=== PATIENT | female | born 1945 | race Caucasian/White ===

== ENCOUNTER 2017-10-03 07:52 | Emergency (ER) | payer MEDICARE ==
[~2017-10-03] VITALS: Ht 160 cm; Wt 81.7 kg
[~2017-10-03 07:52] MED LIST: ASA81BEC PO; ATORVASTATIN CA40 MG PO; BACLOFEN RECTAL; CARISOPRODOL 3350 MG PO; CARVEDILOL12.5 MG PO; CELEBREX 200 M200 M1 PO; COZAAR 25 MG TA25 M2; DEXILANT60 MG PO; DOXYCYCLINE 10100 MG PO; ESTRACE1 TUBE VAG; HYDROCODONE-AP1 EAC6; LISINOPRIL10 MG PO; NEURONTIN 300300 M1
[2017-10-03] MEDS ORDERED: PREVACID30 MG PO (08:09)
[2017-10-03] MEDS ORDERED: MUSCLE RELAXER (08:10)
[2017-10-03 08:11] LABS: URINE BILIRUBIN NEGATIVE (Negative); URINE BLOOD 1+ (Negative); URINE CLARITY SL CLOUDY; URINE GLUCOSE-RANDOM NEGATIVE (Negative); URINE KETONES NEGATIVE (Negative); URINE NITRITE-REFLEX NEGATIVE (Negative); URINE PROTEIN NEGATIVE (Negative); URINE SPECIFIC GRAVITY <= 1.005 (1.005-1.030); URINE UROBILINOGEN 0.2 E.U./dl (0.2-1.0)
[2017-10-03 08:17] LABS: URINE LEUKOCYTES-REFLEX 3+ (Negative)
[2017-10-03 08:18] LABS: URINE COLOR OTHER
[2017-10-03 08:26] LABS: HYALINE CASTS 0-3 Few /LPF (None Seen); MUCUS 0-3 Light strn/LPF (None Seen); SQUAMOUS >10 Many /LPF (0-3)
[2017-10-03 08:27] LABS: URINE RBC 3-10 Few /HPF (0-2); URINE WBC-REFLEX >25 Many /HPF (0-5)
[2017-10-03 08:28] LABS: CRYSTALS None Seen /LPF (None Seen)
[2017-10-03] MEDS ORDERED: PHENAZOPYRIDIN200 M2 PO (08:30)
[2017-10-03] MEDS ORDERED: KEFLEX500 M1 PO (08:30)
[2017-10-03 08:40] VITALS: BP 120/73
== END 2017-10-03 08:41 | disposition home or self-care (01) ==
LOC: M.ERS 07:52
PROVIDERS: Emergency Medicine Emergency Medical Services
DX: N39.0 Urinary tract infection, site not specified (principal); I21.9 Acute myocardial infarction, unspecified; Z90.710 Acquired absence of both cervix and uterus; Z90.49 Acquired absence of other specified parts of digestive tract; Z95.5 Presence of coronary angioplasty implant and graft; Z88.1 Allergy status to other antibiotic agents

== ENCOUNTER 2017-12-20 11:37 | Observation (INO) | payer MEDICARE ==
[~2017-12-20] VITALS: Ht 160 cm; Wt 80.7 kg
[~2017-12-20 11:37] MED LIST changes: +KEFLEX500 M1 PO; +MUSCLE RELAXER; +PHENAZOPYRIDIN200 M2 PO; +PREVACID30 MG PO
[2017-12-20 11:41] VITALS: BP 195/99
[2017-12-20] MEDS ORDERED: FLEXERIL PO (11:48)
[2017-12-20 12:19] LABS: ABSOLUTE BASOPHILS 0.1 thou/uL (0.0-0.2); ABSOLUTE EOSINOPHILS 0.2 thou/uL (0.0-0.7); ABSOLUTE LYMPHOCYTES 1.4 thou/uL (0.8-5.3); ABSOLUTE MONOCYTES 0.8 thou/uL (0.0-1.2); ABSOLUTE NEUTROPHILS 5.2 thou/uL (1.6-8.1); BASOPHILS 0.7 %; EOSINOPHILS 3.2 %; HEMATOCRIT 43.3 % (37.0-47.0); HEMOGLOBIN 14.6 gm/dL (12.0-15.0); MCH 31.7 pg (26.0-34.0); MCHC 33.8 g/dL (28.0-37.0); MCV 93.7 fL (80.0-100.0); MONOCYTES 9.8 %; MPV 7.2 fl. (7.2-11.1); NUCLEATED RBCS 0 /100WBC; PLATELET COUNT* 273 thou/uL (150-400); POLYS 68.3 %; RBC 4.62 mil/uL (4.20-5.00); RDW-CV 14.2 % (10.5-14.5); WBC 7.7 thou/uL (4.0-11.0)
[2017-12-20 12:28] LABS: ANION GAP 9 mmol/L (7-16); BUN 22 mg/dL (7-18); CALCIUM 8.6 mg/dL (8.5-10.1); CHLORIDE 105 mmol/L (98-107); CO2 23 mmol/L (21-32); GLUCOSE 133 mg/dL (70-99); POTASSIUM 3.7 mmol/L (3.5-5.1); SODIUM 137 mmol/L (136-145)
[2017-12-20 12:31] LABS: APTT 28.7 Seconds (25.0-31.3); PROTIME 10.2 Seconds (9.20-11.50)
[2017-12-20 12:39] LABS: ALBUMIN 3.5 g/dL (3.4-5.0); ALKALINE PHOSPHATASE 109 U/L (46-116); LIPASE 122 U/L (73-393); NT-PRO BRAIN NAT PEPTIDE 35 pg/mL (<300); SGOT 21 U/L (15-37); SGPT 40 U/L (30-65); TOTAL BILIRUBIN 1.1 mg/dL (<0.1-1.0); TOTAL PROTEIN 7.1 g/dL (6.4-8.2); TROPONIN-I LEVEL <0.06 ng/mL (<0.06)
[2017-12-20 14:41] VITALS: BP 122/80
[2017-12-20 14:46] VITALS: BP 133/79
[2017-12-20] MEDS ORDERED: TOPAMAX 25 MG T25 M1 PO (15:37)
[2017-12-20 19:06] LABS: CHOLESTEROL 143 mg/dL (<200); HDL CHOLESTEROL 67 mg/dL (>40); LDL CHOLESTEROL 54 mg/dL (<100); TC:HDL 2.1 Ratio (Not establshd); TRIGLYCERIDE 110 mg/dL (<150); VLDL 22 mg/dL (<40)
[2017-12-20 19:07] LABS: SERUM ASSESSMENT CLEAR
[2017-12-20 20:00] VITALS: BP 147/91
[2017-12-21] VITALS (8 sets, daily range): BP systolic 136–191; BP diastolic 71–94
--- NOTE | 2017-12-21 12:54 | EKG ---
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 : 1945 Requested By: Esthela Arnett Order Number: [id number] MD: Jacinto Correa Measurements Intervals [place] Rate: 98 P: 13 [place]: 191 QRS: -5 QRSD: 89 T: 30 QT: 329 QTc: 421 Interpretive Statements Sinus rhythm Baseline wander in lead(s) V5,V6 Compared to ECG 11/29/2013 16:05:15 No significant changes Electronically Signed On 12-21-2017 12:54:05 CDT by Jacinto Correa [email or web address] <ELECTRONICALLY SIGNED> By: Jacinto Correa MD, [facility] 12/21/17 1254 1144 1144 Jacinto Correa MD, [facility] /EPI
--- NOTE | 2017-12-21 15:32 | CARDNUC ---
[place] [address] CARDIAC NUCLEAR IMAGING REPORT Name: AMINA OJEDA Room: [address] IN [facility]#: [id number] Admission: 12/20/17 Attend Phys: Steven Lopez Discharge: Date of : 45 Date of Service: 12/21/17 1532 Report #: [id number] THIS REPORT FOR: //name// APPROVED REPORT Imaging Protocol: Rest Tc-99m/Stress Tc-99m 1 day Study performed: 12/20/2017 18:37:00 Indication: chest pain Patient Location: In-Patient Room #: 202 Stress Tech: Janae Paredes Stress Nurse: Ngoc Jules RN NM Tech:ASHA Humphrey Ht: 5 ft 2 in Wt: 178 lbs BSA: 1.82 m2 BMI: 32.55 Medical History Medical History: mi, cad, pci, hyperlipidemia, hypertension Allergies: sulfa Cardiac Risk Factors: age, hyperlipidemia, hypertension, family hx Previous Cardiac Procedures: pci Meds Held (24 hrs): carvedilol Resting Data Rest SPECT myocardial perfusion imaging was performed in supine position 30 minutes following the intravenous injection of 11.5 mCi of Tc-99m Sestamibi. Time of rest injection: 1115 Date: 12/21/2017 Time of rest imagin The images were gated to evaluate regional wall motion and calculate left ventricular ejection fraction. Administration Route: IV Administration Site: Right AC Pharmacologic Stress Pharmacologic stress test was performed by injecting Regadenoson 0.4 mg IV push over 10-15 seconds immediately followed by the intravenous injection of 35.3 mCi of Tc-99m Sestamibi. Time of stress injection: 1330 Time of stress imagin Administration Route: [place] [address] CARDIAC NUCLEAR IMAGING REPORT Name: AMINA OJEDA Room: [address] IN ..#: [id number] Admission: 12/20/17 Attend Phys: Steven Lopez Discharge: Date of : 45 Date of Service: 12/21/17 1532 Report #: [id number] Administration Site: Right AC Gated Stress SPECT was performed 40 minutes after stress injection. The images were gated to evaluate regional wall motion and calculate left ventricular ejection fraction. Prone imaging was performed. Stress Test Details Stress Test: Pharmacologic stress testing performed using 0.4 mg of regadenoson per 5 mL given IV over 10 seconds. HR Max Heart Rate (APMHR): 148 bpm Resting HR: 89 bpm Target HR (85% APMHR): 125 bpm Max HR Achieved: 121 bpm % of APMHR: 81 Recovery HR: 99 bpm BP Resting BP: 169/107 mmHg Recovery BP: 160/112 mmHg ECG Resting ECG: Sinus Rhythm, normal EKG Stress ECG: Sinus Rhythm, normal EKG ST Change: None Arrhythmia: None Recovery ECG: Sinus Rhythm, normal EKG Recovery ST Change: None Recovery Arrhythmia: None Clinical Reason for Termination: Completed protocol Exercise duration: 0 min sec Exercise capacity: 1 METs The patient had some symptoms of shortness of breath and chest discomfort that appear to be related to medication effect in light of nuclear medicine stress test findings. Nurse Comments pt co soa and mild chest tightness Stress ECG Conclusion The baseline 12-lead EKG shows sinus rhythm without significant ST or T wave abnormality. EKGs obtained during and post Lexiscan infusion show sinus rhythm with no significant ST or T wave changes when compared to baseline. There [place] [address] CARDIAC NUCLEAR IMAGING REPORT Name: OJEDAAMINA Room: [address]#: [id number] Admission: 12/20/17 Attend Phys: Steven Lopez Discharge: Date of : 45 Date of Service: 12/21/17 1532 Report #: [id number] arrhythmias. Study Quality Study: Good Artifact: No artifact Study Data At rest, the left ventricular ejection fraction was 64%.. Post stress, the left ventricular ejection was 73%.. TID = 0.88. Perfusion Normal left ventricular perfusion. Wall Motion Normal left ventricular wall motion. Nuclear Conclusion ECG Findings: negative for ischemia Clinical Findings: non-diagnostic Nuclear Findings: negative for ischemia Exercise Capacity: not assessed Left Ventricular Function: normal Risk Study: low Myocardial perfusion images show no defect to suggest infarct or ischemia. Left ventricular systolic function appears normal on gated studies. This is a low risk study. <Conclusion> The baseline 12-lead EKG shows sinus rhythm without significant ST or T wave abnormality. EKGs obtained during and post Lexiscan infusion show sinus rhythm with no significant ST or T wave changes when compared to baseline. There were no stress-induced arrhythmias. <ELECTRONICALLY SIGNED> By: Lico Barney MD, FACC 12/21/17 1532 153 1532 Lico Barney MD, FACC /INF
[2017-12-21] MEDS ORDERED: NITROGLYCERIN0.4 MG SUBLING (15:56)
[2017-12-21] MEDS ORDERED: NORCO 5-325 TA1 EACH PO (15:56)
[2017-12-21] MEDS ORDERED: ONDANSETRON HCL4 M2 PO (15:57)
[2017-12-22 02:06] LABS: GLYCOHEMOGLOBIN (HGB A1C) 5.7 % (4.8-5.6)
== END 2017-12-21 16:25 | disposition home or self-care (01) ==
LOC: M.ERS 11:37 → M.TBA-ER 13:11 → M.2W 13:11
PROVIDERS: Internal Medicine; Personal Emergency Response Attendant; ADMIT Internal Medicine
DX: I20.9 Angina pectoris, unspecified (principal); M47.892 Other spondylosis, cervical region; E78.5 Hyperlipidemia, unspecified; I12.9 Hypertensive chronic kidney disease with stage 1 through stage 4 chronic kidney disease, or unspecified chronic kidney disease; N18.3 Chronic kidney disease, stage 3 (moderate); G43.909 Migraine, unspecified, not intractable, without status migrainosus; E80.6 Other disorders of bilirubin metabolism; R19.7 Diarrhea, unspecified; R51 Headache; I25.2 Old myocardial infarction; Z98.890 Other specified postprocedural states; Z90.710 Acquired absence of both cervix and uterus; Z90.49 Acquired absence of other specified parts of digestive tract

== ENCOUNTER → 2018-01-05 | Outpatient (CLI) | payer MEDICARE ==
[~2018-01-05] MED LIST changes: +FLEXERIL PO; +NITROGLYCERIN0.4 MG SUBLING; +NORCO 5-325 TA1 EACH PO; +ONDANSETRON HCL4 M2 PO; +TOPAMAX 25 MG T25 M1 PO
--- NOTE | 2018-01-05 14:50 | 2DMMODE ---
[place] [address] 2 D/M-MODE ECHOCARDIOGRAM Name: OJEDAAMINA Room: [facility]#: [id number] Admission: 01/05/18 Attend Phys: Violet Ignacio, Discharge: Date of : 45 Date of Service: 01/05/18 1450 Report #: [id number] THIS REPORT FOR: //name// APPROVED REPORT Study performed: 01/05/2018 12:59:11 EXAM: Comprehensive 2D, Doppler, and color-flow Echocardiogram Patient Location: Out-Patient Status: routine BSA: 1.85 HR: 71 bpm BP: 138/82 mmHg Other Information Study Quality: Fair Indications Dyspnea CAD 2D Dimensions IVSd: 11.56 (7-11mm) LVOT Diam: 20.93 (18-24mm) LVDd: 43.52 mm PWd: 12.05 (7-11mm) Ascending Ao: 31.84 (22-36mm) LVDs: 23.19 (25-40mm) Aortic Root: 31.17 mm Volumes Left Atrial Volume (Systole) LA ESV Index: 17.60 mL/m2 Aortic Valve AoV Peak Ubaldo.: 1.04 m/s AO Peak Gr.: 4.35 mmHg LVOT Max P.33 mmHg AO Mean Gr.: 2.55 mmHg LVOT Mean P.31 mmHg LVOT Max V: 0.76 m/s AO V2 VTI: 21.74 cm LVOT Mean V: 0.54 m/s PAULETTE (VTI): 2.30 cm2 LVOT V1 VTI: 14.51 cm AI Dare: 2.91 m/s2 AI PHT: 370.47 ms Mitral Valve E/A Ratio: 0.49 [place] [address] 2 D/M-MODE ECHOCARDIOGRAM Name: AMINA OJEDA Room: [facility]#: [id number] Admission: 01/05/18 Attend Phys: Violet Ignacio, Discharge: Date of : 45 Date of Service: 01/05/18 1450 Report #: [id number] MV Decel. Time: 221.70 ms MV E Max Ubaldo.: 0.36 m/s MV PHT: 64.29 ms MVA (PHT): 3.42 cm2 TDI E/Lateral E': 7.20 E/Medial E': 6.00 Medial E' Ubaldo.: 0.06 m/s Lateral E' Ubaldo.: 0.05 m/s Pulmonary Valve PV Peak Ubaldo.: 0.83 m/s PV Peak Gr.: 2.72 mmHg Left Ventricle The left ventricle is normal size. There is normal LV segmental wall motion. There is normal left ventricular wall thickness. Left ventricular systolic function is normal. The left ventricular ejection fraction is within the normal range. LVEF is 55-60%. Grade I - abnormal relaxation pattern. Right Ventricle The right ventricle is normal size. The right ventricular systolic function is normal. Atria The left atrium size is normal. The right atrium size is normal. Aortic Valve The aortic valve is normal in structure. Trace aortic regurgitation. There is no aortic valvular stenosis. Mitral Valve The mitral valve is normal in structure. There is no mitral valve regurgitation noted. No evidence of mitral valve stenosis. Tricuspid Valve The tricuspid valve is normal in structure. There is no tricuspid valve regurgitation noted. Pulmonic Valve The pulmonary valve is normal in structure. There is no pulmonic valvular regurgitation. Great Vessels The aortic root is normal in size. IVC [place] [address] 2 D/M-MODE ECHOCARDIOGRAM Name: AMINA OJEDA Room: [facility]#: [id number] Admission: 01/05/18 Attend Phys: Violet Ignacio, Discharge: Date of : 45 Date of Service: 01/05/18 1450 Report #: [id number] collapses >50% with inspiration. Pericardium There is no pericardial effusion. <Conclusion> The left ventricle is normal size. There is normal left ventricular wall thickness. Left ventricular systolic function is normal. The left ventricular ejection fraction is within the normal range. LVEF is 55-60%. Grade I - abnormal relaxation pattern. The right ventricle is normal size. The left atrium size is normal. The aortic valve is normal in structure. Trace aortic regurgitation. There is no aortic valvular stenosis. The mitral valve is normal in structure. The tricuspid valve is normal in structure. IVC is normal in size and collapses >50% with inspiration. There is no pericardial effusion. There is normal LV segmental wall motion. <ELECTRONICALLY SIGNED> By: Jacinto Correa MD, FACC 01/05/18 1450 1450 1450 Jacinto Correa MD, FACC /INF
== END ==
LOC: M.CRD 12:47
DX: I25.10 Atherosclerotic heart disease of native coronary artery without angina pectoris (principal); I38 Endocarditis, valve unspecified; R53.83 Other fatigue; I10 Essential (primary) hypertension; Z88.8 Allergy status to other drugs, medicaments and biological substances

== ENCOUNTER → 2019-05-22 | Outpatient (CLI) | payer MEDICARE ==
[~2019-05-22] VITALS: Ht 160 cm; Wt 83.0 kg
--- NOTE | ~2019-05-22 | EKG ---
[place] [address] ELECTROCARDIOGRAM REPORT Name: AMINA OJEDA Room: [facility]#: [id number] Admission: 05/22/19 Attend Phys: Valeriano Yarbrough MD Discharge: Date of : 45 Date of Service: 05/22/19837 Report #: [id number] THIS REPORT FOR: cc: Jacques Marmolejo Chad W. DO Epiphany, Epiphany MD ~ THIS REPORT FOR: //name// 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
[2019-05-22 08:24] LABS: HEMATOCRIT 38.7 % (37.0-47.0); HEMOGLOBIN 13.4 gm/dL (12.0-15.0); MCH 31.5 pg (26.0-34.0); MCHC 34.5 g/dL (28.0-37.0); MCV 91.3 fL (80.0-100.0); MPV 7.3 fl. (7.2-11.1); RBC 4.23 mil/uL (4.20-5.00); RDW-CV 13.1 % (10.5-14.5); WBC 7.7 thou/uL (4.0-11.0)
[2019-05-22 08:42] LABS: APTT 28.5 Seconds (25.0-31.3); INR 1.1
[2019-05-22 08:49] LABS: ANION GAP 13 mmol/L (7-16); BUN 22 mg/dL (7-18); CALCIUM 8.6 mg/dL (8.5-10.1); CHLORIDE 108 mmol/L (98-107); CO2 20 mmol/L (21-32); CREATININE 0.9 mg/dL (0.6-1.3); GLUCOSE 115 mg/dL (70-99); SODIUM 141 mmol/L (136-145)
[2019-05-22 08:54] LABS: ALBUMIN 3.7 g/dL (3.4-5.0); ALKALINE PHOSPHATASE 110 U/L (46-116); SGOT 25 U/L (15-37); SGPT 33 U/L (30-65); TOTAL BILIRUBIN 0.9 mg/dL (<0.1-1.0); TOTAL PROTEIN 6.7 g/dL (6.4-8.2)
[2019-05-22 09:07] LABS: CHOLESTEROL 126 mg/dL (<200); HDL CHOLESTEROL 56 mg/dL (>40); LDL CHOLESTEROL 53 mg/dL (<100); TC:HDL 2.3 Ratio (Not establshd); TRIGLYCERIDE 86 mg/dL (<150); VLDL 17 mg/dL (<40)
[2019-05-22 09:14] LABS: SERUM ASSESSMENT Clear
[2019-05-22 09:30] VITALS: BP 109/67
[2019-05-22 12:08] VITALS: BP 136/72
[2019-05-22 12:52] VITALS: BP 146/79
[2019-05-22 13:38] VITALS: BP 154/73
--- NOTE | 2019-05-22 18:43 | CARD ---
[address] [address] CARDIAC CATH REPORT Name: [facility]INA [facility]JEDA [id number] Admission: 05/22/19 Attend Phys: Valeriano Yarbrough MD, F Discharge: Date of : 45 Report #: [id number] THIS REPORT FOR: //name// cc: Jacques Marmolejo Chad W. DO ~ THIS REPORT FOR: //name// APPROVED REPORT Study performed: 05/22/2019 10:48:14 Patient Details Patient Status: Out-Patient Room #: The patient is a 73 year-old female Event Personnel Valeriano Yarbrough Web Operations Specialist, Guadalupe Cormier RN RN, Griffin Mercado TEACHER ASSISTANT Scrub, Sharon Regalado RTR Monitor Procedures Performed Art Access - R radial artery Left Heart Cath w/or w/o Coronaries Hemostasis with Hemoband Indication Chest pain Risk Factors Arterial Hypertension, Hypercholesterolemia Previous Procedures/Diagnoses Previous PCI Admission/Lab Medications/Medications given during procedure Aspirin, Heparin Unfract. Procedure Narrative The patient was brought electively to the Cardiac Catheterization Laboratory and was prepped and draped in a sterile manner. The right wrist was infiltrated with 1% Lidocaine subcutaneous anesthesia. A Slender Glidesheath sheath was inserted into the right radial artery. Coronary angiography was performed using coronary diagnostic catheters. The right coronary system was accessed and visualized with a Diagnostic JR 4 5 Fr catheter. The left coronary system was accessed and visualized with a Diagnostic JL 3.5 5 Fr catheter. The left ventricle was accessed and visualized with a Diagnostic Pigtail [address] [address] CARDIAC CATH REPORT Name: LYNETTEAMINARA LEE Room: [facility]#: [id number] Admission: 05/22/19 Attend Phys: Valeriano Yarbrough MD, F Discharge: Date of : 45 Report #: [id number] 5 Fr catheter. Left ventricular/Aortic Valve gradient assessed via catheter pullback. Left ventriculogram was performed in SÁNCHEZ projection. Closure device was deployed with a 6 Fr Vasc-Band Reg 24cm. The patient tolerated the procedure well and there were no complications associated with the procedure. There was no hematoma. Intraoperative Conscious Sedation Sedation start time: 11:30 Case end Time: 11:51 Versed 2 mg Fluoro Time: 2.5 minutes Dose: DAP 12472 cGycm2 569 mGy Contrast Type and Amount: Visipaque 70 ml Coronary Angiography The patient's coronary anatomy is right dominant. [place] Artery Percent Stenosis Left Main: 0 % Prox LAD: 0 % Mid/Distal LAD: 0 % Circumflex: 0 % RCA: 0 % Ramus: %stent in the mid lad had no restenosis Left Ventriculography The left ventricular ejection fraction is estimated to be 60-65%. Left ventricular wall motion abnormalities are not present. There is no mitral insufficiency. Hemodynamics The aortic pressure is 148/68 mmHg with a mean of 101 mmHg. The left ventricular pressure is 142/10 mmHg with a mean of mmHg. The left ventricular end diastolic pressure is 15 mmHg. There was no gradient across the aortic valve upon pullback. Pullback from the left ventricle to the aorta revealed no gradient across the aortic valve. Conclusion 1. no restenosis of stent in the mid lad 2. LVEF 60-65% [place] [address] CARDIAC CATH REPORT Name: AMINA OJEDA Room: [facility]#: [id number] Admission: 05/22/19 Attend Phys: Valeriano Yarbrough MD, F Discharge: Date of : 45 Report #: [id number] Recommendations Aggressive Medical Therapy <ELECTRONICALLY SIGNED> By: Valeriano Yarbrough MD, FACC 05/22/191841 41 1842Dtony Yarbrough MD, FACC /INF
== END | disposition home or self-care (01) ==
LOC: M.CL 07:26
PROVIDERS: Internal Medicine Cardiovascular Disease
DX: R07.9 Chest pain, unspecified (principal); I10 Essential (primary) hypertension; E78.00 Pure hypercholesterolemia, unspecified; I25.2 Old myocardial infarction; Z98.890 Other specified postprocedural states; Z79.899 Other long term (current) drug therapy; Z88.2 Allergy status to sulfonamides; Z88.8 Allergy status to other drugs, medicaments and biological substances; Z90.710 Acquired absence of both cervix and uterus; Z90.49 Acquired absence of other specified parts of digestive tract; Z79.82 Long term (current) use of aspirin

== ENCOUNTER 2019-07-02 19:46 | Inpatient (IN) | payer MEDICARE ==
[~2019-07-02] VITALS: Ht 160 cm; Wt 86.3 kg
[2019-07-02 19:55] VITALS: BP 201/88
[2019-07-02] MEDS ORDERED: ISOSORBIDE DINI30 MG PO (19:59)
[2019-07-02 20:17] LABS: ABSOLUTE EOSINOPHILS 0.2 thou/uL (0.0-0.7); ABSOLUTE MONOCYTES 0.6 thou/uL (0.0-1.2); ABSOLUTE NEUTROPHILS 4.7 thou/uL (1.6-8.1); BASOPHILS 0.6 %; EOSINOPHILS 3.2 %; LYMPHOCYTES 26.2 %; MCH 32.2 pg (26.0-34.0); MCHC 35.2 g/dL (28.0-37.0); MCV 91.5 fL (80.0-100.0); MONOCYTES 7.3 %; MPV 7.7 fl. (7.2-11.1); NUCLEATED RBCS 0 /100WBC; PLATELET COUNT* 240 thou/uL (150-400); POLYS 62.7 %; RBC 4.04 mil/uL (4.20-5.00); RDW-CV 13.2 % (10.5-14.5); WBC 7.5 thou/uL (4.0-11.0)
[2019-07-02 20:24] LABS: APTT 28.2 Seconds (25.0-31.3); PROTIME 10.6 Seconds (9.20-11.50)
[2019-07-02 20:27] LABS: CALCIUM 8.4 mg/dL (8.5-10.1); CREATININE 0.9 mg/dL (0.6-1.3); POTASSIUM 3.9 mmol/L (3.5-5.1)
[2019-07-02 20:38] LABS: ALBUMIN 3.8 g/dL (3.4-5.0); TOTAL BILIRUBIN 0.3 mg/dL (<0.1-1.0); TOTAL PROTEIN 6.7 g/dL (6.4-8.2)
[2019-07-02 21:39] LABS: URINE BILIRUBIN NEGATIVE (Negative); URINE BLOOD NEGATIVE (Negative); URINE CLARITY CLEAR; URINE COLOR YELLOW; URINE GLUCOSE-RANDOM NEGATIVE (Negative); URINE KETONES NEGATIVE (Negative); URINE LEUKOCYTES-REFLEX NEGATIVE (Negative); URINE NITRITE-REFLEX NEGATIVE (Negative); URINE PROTEIN NEGATIVE (Negative); URINE UROBILINOGEN 0.2 E.U./dl (0.2-1.0)
--- NOTE | 2019-07-03 00:23 | NUR ---
PATIENT PLACED ON HOSPITAL BED AND MOVED TO ROOM 16. VITALS STABLE. ALERT AND ORIENTED TIMES FOUR. WILL CONTINUE TO MONITOR.
[2019-07-03 03:39] VITALS: BP 160/87
[2019-07-03 07:53] VITALS: BP 172/80
[2019-07-03 08:25] VITALS: BP 172/80
--- NOTE | 2019-07-03 09:12 | EKG ---
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: PAIGE : 1945 Requested By: Esthela Arnett Order Number: [id number] MD: Valeriano Yarbrough Measurements Intervals [place] Rate: 64 P: 32 [place]: 202 QRS: 11 QRSD: 97 T: 23 QT: 398 QTc: 411 Interpretive Statements Sinus rhythm Borderline T wave abnormalities Compared to ECG 05/22/2019 08:38:47 No significant changes Electronically Signed On 07-03-2019 9:11:10 CDT by Valeriano Yarbrough [email or web address] <ELECTRONICALLY SIGNED> By: Valeriano Yarbrough MD, FACC 07/03/1911 54 54 Valeriano Yarbrough MD, [facility] /EPI
--- NOTE | 2019-07-03 10:05 | NUR ---
[place]: MET WITH PT AND SPOUSE. PT STATES SHE IS NORMALLY 'VERY' ACTIVE. USES NO EQUIPMENT AT HOME. HAS BEEN TO SNF AT [facility] IN PAST AFTER A KNEE SURGERY. PT DENIES ANY NEEDS. WILL FOLLOW
[2019-07-03] MEDS ORDERED: HYDRALAZINE 10M10 MG PO (13:44)
--- NOTE | 2019-07-03 18:22 | NUR ---
PER DR MACIEL PT CAN BE DISCHARGED ONCE CLEARED BY CARDIO AND NEURO CLEARED BY CARDIO NEURO PUT IN AN MRI FOR 07/03 AT 0900 PENDING DISCHARGE BASED ON RESULTS
[2019-07-03 19:35] VITALS: BP 166/85
--- NOTE | 2019-07-03 21:15 | NUR ---
ASSUMED CARE OF PATIENT APPROX 1900. PATIENT DENIES PAIN AND DISCOMFORT. REPORTS MEDS THAT WERE GIVEN PRIOR WERE AFFECTIVE FOR HER HEADACHE. PATIENT REMAINS TELE STATUS. PENDING MRI IN THE AM. PATIENT'S BELONGINGS GATHERED AND PATIENT TRANSFERRED TO ROOM 227 AT THIS TIME. REPORT GIVEN TO YOLANDA ROY.
[2019-07-03 21:30] VITALS: BP 148/77
[2019-07-03 23:43] VITALS: BP 158/77
[2019-07-04 04:24] VITALS: BP 154/77
--- NOTE | 2019-07-04 04:58 | NUR ---
PT TRANSFERED FROM ICU AT 2100, ASSESSMENT COMPLETED AT BEDSIDE CHARTED, MEDICATIONS ADMINISTERED PER MAR. NO C/O PAIN OR DISCOMFORT NOTED. CURRENTLY ASLEEP IN BED WITH CALL LIGHT WITHIN REACH.
[2019-07-04 11:48] VITALS: BP 176/89
[2019-07-04 13:54] VITALS: BP 176/89
[2019-07-04 16:44] VITALS: BP 171/91
[2019-07-04] MEDS ORDERED: VERAPAMIL HCL180 M2 PO (17:30)
[2019-07-04 18:05] VITALS: BP 160/89
--- NOTE | 2019-07-04 19:05 | NUR ---
ORDER RECEIVE D TO DICHARGE PATIENT HOME TO SELF CARE WITH . MED REC, MEICATION EDUCATION, AND NEED FOR FOLLOW UP APPOINTMENTS WQITH PRIMARY, CARDIOLOGY, AND NEURO COVERED WITH KARON AND STATED UNDERSTOOD BY PATIENT. HOURLY ROUJNDING COMPETD FOR PATIENT SAFETY. DC TIME OF 18:45.
== END 2019-07-04 18:48 | disposition home or self-care (01) | DRG 305 ==
LOC: M.ERS 19:46 → M.TBA-ER 23:02 → M.ICU 23:02 → M.2W 07-03 21:16
PROVIDERS: Personal Emergency Response Attendant; ADMIT Internal Medicine
DX: I16.0 Hypertensive urgency (principal); I25.110 Atherosclerotic heart disease of native coronary artery with unstable angina pectoris; I10 Essential (primary) hypertension; E78.5 Hyperlipidemia, unspecified; T50.995A Adverse effect of other drugs, medicaments and biological substances, initial encounter; I25.2 Old myocardial infarction; Z95.5 Presence of coronary angioplasty implant and graft; Z90.49 Acquired absence of other specified parts of digestive tract; Z90.710 Acquired absence of both cervix and uterus; Z79.899 Other long term (current) drug therapy; Z79.82 Long term (current) use of aspirin; Z88.2 Allergy status to sulfonamides; Z88.8 Allergy status to other drugs, medicaments and biological substances; Z82.49 Family history of ischemic heart disease and other diseases of the circulatory system; Y92.89 Other specified places as the place of occurrence of the external cause

== ENCOUNTER → 2019-11-10 | Outpatient (CLI) | payer MEDICARE ==
[~2019-11-10] MED LIST changes: +HYDRALAZINE 10M10 MG PO; +ISOSORBIDE DINI30 MG PO; +VERAPAMIL HCL180 M2 PO
== END ==
LOC: M.ULTRA 09:41
PROVIDERS: ATTEND Nurse Practitioner
DX: I65.23 Occlusion and stenosis of bilateral carotid arteries (principal)